=== PATIENT | male | born 1995 | race African-American/Black ===

== ENCOUNTER 2022-02-01 17:35 | Emergency (ER) | payer OTHER ==
[~2022-02-01] VITALS: Ht 185.4 cm; Wt 146.0 kg
[2022-02-01 17:48] VITALS: BP 146/91
[2022-02-01] MEDS ORDERED: LIDOCAINE HCL 2% JELLY 5ML TOP ONE (19:30)
== END 2022-02-01 19:40 | disposition home or self-care (01) ==
LOC: ER 17:35
DX: K62.89 Other specified diseases of anus and rectum (principal); K59.00 Constipation, unspecified; R03.0 Elevated blood-pressure reading, without diagnosis of hypertension; Z71.89 Other specified counseling
CPT/HCPCS: 99283